=== PATIENT | female | born 1980 | race Hispanic/Latino ===

== ENCOUNTER → 2018-12-12 | Outpatient (CLI) | payer OTHER | LOC: MAMMO 10:08 | PROVIDERS: ATTEND Internal Medicine | DX: Z12.31 Encounter for screening mammogram for malignant neoplasm of breast (principal) | CPT/HCPCS: 77067 ==

== ENCOUNTER → 2024-01-06 | Outpatient (REF) | payer OTHER | LOC: RAD 10:28 | PROVIDERS: ATTEND Internal Medicine | DX: M19.041 Primary osteoarthritis, right hand (principal) ==